=== PATIENT | female | born 1980 | race Caucasian/White ===

== ENCOUNTER → 2023-11-15 | Outpatient (CLI) | payer OTHER ==
[2023-11-16 03:06] LABS: RUBELLA AB IGG-REFLAB 15.9 index (Immune >0.99); RUBEOLA (MEASLES) IGG 75.5 AU/mL (Immune >16.4); VARICELLA ZOSTER IGG AB TITER 1794 index (Immune >165)
[2023-11-17 17:07] LABS: QUANTIFERON+, Nil Value 0.02 IU/mL; QUANTIFERON+,Mitogen Value >10.00 IU/mL; QUANTIFERON+,TB1 Antigen Value 0.05 IU/mL; QUANTIFERON+,TB2 Antigen Value 0.05 IU/mL; QUANTIFERON, TB GOLD PLUS Negative (Negative)
[2023-11-18 09:07] LABS: HEPATITIS BE ANTIBODY Negative (Negative)
== END | disposition home or self-care (01) ==
LOC: LABMN 16:58
PROVIDERS: ATTEND Family Medicine
DX: Z20.828 Contact with and (suspected) exposure to other viral communicable diseases (principal); Z11.3 Encounter for screening for infections with a predominantly sexual mode of transmission; Z02.89 Encounter for other administrative examinations; Z20.1 Contact with and (suspected) exposure to tuberculosis
CPT/HCPCS: 86480; 86592; 86707; 86735; 86762; 86765; 86787; 87340; 87491; 87591

== ENCOUNTER → 2023-11-24 | Outpatient (CLI) | payer OTHER | END | disposition home or self-care (01) | LOC: LABMN 07:20 | PROVIDERS: ATTEND Family Medicine | DX: Z11.3 Encounter for screening for infections with a predominantly sexual mode of transmission (principal); Z02.89 Encounter for other administrative examinations; Z20.828 Contact with and (suspected) exposure to other viral communicable diseases; Z20.1 Contact with and (suspected) exposure to tuberculosis | CPT/HCPCS: 86706 ==